=== PATIENT | female | born 1980 | race Caucasian/White ===

== ENCOUNTER 2019-05-06 11:13 | Emergency (ER) | payer OTHER ==
[~2019-05-06] VITALS: Ht 154.9 cm; Wt 46.8 kg
[2019-05-06 11:43] LABS: GLUCOSE,POINT OF CARE 69 MG/DL (70-110)
[2019-05-06] MEDS ORDERED: KETOROLAC TROMETHAMINE 10 MG TABLET PO ONE (12:00)
[2019-05-06 12:19] VITALS: BP 127/78
== END 2019-05-06 12:39 | disposition home or self-care (01) ==
LOC: EMS 11:14
DX: J06.9 Acute upper respiratory infection, unspecified (principal); F17.210 Nicotine dependence, cigarettes, uncomplicated; F11.90 Opioid use, unspecified, uncomplicated

== ENCOUNTER 2019-09-30 08:30 | Emergency (ER) | payer OTHER ==
[~2019-09-30] VITALS: Ht 154.9 cm; Wt 50.0 kg
[2019-09-30 08:32] VITALS: BP 124/82
== END 2019-09-30 09:35 | disposition left against medical advice (07) ==
LOC: EMS 08:39
DX: R11.2 Nausea with vomiting, unspecified (principal); Z53.21 Procedure and treatment not carried out due to patient leaving prior to being seen by health care provider